=== PATIENT | female | born 1980 | race Caucasian/White ===

== ENCOUNTER 2024-11-10 07:15 | Outpatient (CLI) | payer OTHER, SELFPAY ==
[2024-11-10 07:46] VITALS: PULSE 66; RESP 16; TEMP 36.4
--- NOTE | 2024-11-10 07:55 | PDOC.PAIN ---
Date of service: 11/10/24 Time of Service: 08:32 Pain Managment Procedure Note Procedure Note Procedure Note: Lumbar Transforaminal Epidural Steroid Injection ? Location: RIGHT L3-4 ? Pre-procedure Diagnosis: M54.17-Radiculopathy, lumbosacral region M54.16 Radiculopathy, lumbar region ? Post-procedure Diagnosis:? The same as above ? Sedation:? none ? Estimated blood loss:? less than 2 cc ? Surgeon:? Colin Gilbert MD COMMENT: Patient has some foraminal narrowing on the right at L3?4 with radiation to her right thigh ? Procedure Detail:?? The procedure and potential risks were explained to the patient and informed written consent was obtained. The patient was escorted to the procedure room and placed in the prone position. Pillows were utilized for proper positioning and comfort. Time out was performed in the procedure room with nursing staff confirming the patient's identity, procedure to be performed, allergies, and any blood thinning or anti-platelet medications. The patient's lower back was prepped with ChloraPrep and draped in a sterile fashion. Sterile gloves were used, a face mask was worn, and new single dose vials of all medications were used with the top being swabbed with alcohol and given time to dry prior to withdrawal of medication. A right-sided oblique fluoroscopic view was obtained, with visualization of L3-4. Lidocaine 1% was used to anesthetize the skin. The tip of a 22-gauge, Quincke needle was advanced toward the 6 o'clock position of the superior pedicle at the target level.? It was advanced just under the pedicle to the neural foramen L3-4. Correct needle placement was confirmed through review of the fluoroscopy. Next, following negative aspiration, 1cc's of Omnipaque 240 contrast was injected under live fluoroscopy which showed good flow throughout the epidural space and no evidence of vascular flow or flow into adjacent compartments. Next, following negative aspiration,40mg Depo-Medrol and 0.5ml of 0.5% bupivacaine was injected. The needle was gently removed.? ? The patient tolerated the procedure well.? Permanent images saved and recorded. Plan:? Follow up prn PAIN: PRE PROCEDURE 03/26 POST PROCEDURE 10/27 COMMENT: Can repeat prn. Will schedule cervical FRANCO
[2024-11-10 08:15] VITALS: PULSE 70; O2SAT 98
--- NOTE | 2024-11-10 08:15 | DI.RAD_ITS ---
Exam(s) XR PAIN CLINIC LUMBAR SP 2V EXAM: XR PAIN CLINIC LUMBAR SP 2V CLINICAL HISTORY: Dx: Lumbar Radiculopathy. TECHNIQUE: Fluoroscopy was provided for the referring physician for guidance with performing pain cl inic injection procedure. COMPARISON: No exams were available for comparison FINDINGS: Please see procedure note for details. Fluoro time: 28.6 seconds RADIATION DOSE DELIVERED: Ka,r=6.49 mGy
[2024-11-10 08:16] VITALS: BP 104/73; PULSE 63; O2SAT 99
[2024-11-10 08:20] VITALS: PULSE 62; O2SAT 98
[2024-11-10] MEDS: Nerve Block Tray 1 EACH MC (08:32)
[2024-11-10] MEDS: Bupivacaine 0.5% Pres-Free 10 ML VIAL IJ (08:33)
[2024-11-10] MEDS: methylPREDNISolone ACETATE 40 MG/ML VIAL IJ (08:33)
[2024-11-10] MEDS: Omnipaque 240 MG/ML 50 ML BTL IJ (08:33)
== END 2024-11-10 07:16 | disposition home or self-care (01) ==
LOC: PC 07:16
PROVIDERS: PCP Registered Nurse; Visit Provider Anesthesiology Pain Medicine
DX: M54.17 Radiculopathy, lumbosacral region (principal); M54.16 Radiculopathy, lumbar region
CPT/HCPCS: 00123; 64483; 72100; J0665; J1010; Q9967

== ENCOUNTER 2024-12-08 12:08 | Outpatient (CLI) | payer OTHER, SELFPAY ==
--- NOTE | 2024-12-08 06:00 | DI.RAD_ITS ---
Exam(s) XR PAIN CLINIC CERVICAL SP 2V EXAM: XR PAIN CLINIC CERVICAL SP 2V CLINICAL HISTORY: DX: Cervical Radiculopathy. TECHNIQUE: Fluoroscopy was provided for the referring physician for guidance with performing pain cl inic injection procedure. COMPARISON: No exams were available for comparison FINDINGS: Please see procedure note for details. Fluoro time: 20.4 seconds RADIATION DOSE DELIVERED: Ka,r=2.2 mGy
--- NOTE | 2024-12-08 12:26 | PDOC.PAIN ---
Date of service: 12/08/24 Time of Service: 13:08 Pain Managment Procedure Note Procedure Note Procedure Note: CERVICAL EPIDURAL STEROID INJECTION ? Pre-procedure Diagnosis: M54.12- Radiculopathy, cervical region ? Post-procedure Diagnosis:? The same as above ? Sedation:? ? none ? Medication: Depo-Medrol 80 mg, Omnipaque 1 mL ? Estimated blood loss:? less than 2 cc ? Surgeon:? Colin Gilbert MD Comment: ? Procedure Detail:? The procedure and potential risks were explained to the patient and informed written consent was obtained. The patient was escorted to the procedure room and placed in the prone position. Pillows were utilized for proper positioning and comfort. Time out was performed in the procedure room with nursing staff confirming the patient's identity, procedure to be performed, allergies, and any blood thinning or anti-platelet medications.? The patient's neck and upper back was prepped with ChloraPrep and draped in a sterile fashion. Sterile technique was maintained throughout the procedure.? Sterile gloves were used, a face mask was worn, and new single dose vials of all medications were used with the top being swabbed with alcohol and given time to dry prior to withdrawal of medication. Lidocaine 1% was used to anesthetize the skin. Using a 25-gauge 1.5 inch needle, 1% lidocaine was instilled into the superficial soft tissue overlying the targeted area to provide local anesthesia. With fluoroscopic guidance, a 17 -gauge Tuohy needle was advanced toward the interlaminar space of C7-T1. The needle was then advance through the ligamentum flavum and into the posterior epidural space using the loss of resistance technique. Correct needle placement was confirmed through review of the AP and contralateral oblique fluoroscopic views. A 19-gauge Arrow catheter was threaded cephalad to C5-6 midline Following negative aspiration, one cc of Omnipaque 240 contrast was injected which confirmed good flow throughout the epidural space and no evidence of vascular flow or flow into adjacent compartments. Next, following negative aspiration, 1 cc's of normal saline and 80mg of Depo-Medrol was injected. The needle and catheter were gently removed intact. The patient tolerated the procedure well and was transported to the recovery area for observation and discharge instructions. Permanent images saved and recorded. Plan:? Follow up PRN. PAIN PRE PROCEDURE 04/26 POST PROCEDURE COMMENT: Patient will follow-up in office if still having pain Coding Conscious Sedation used for procedure: No CPT Codes: Inj Spine C/T w/Imaging - 91756 ([id number] ~G) Additional Codes: Date of Service (45734) Date of service: 12/08/24
[2024-12-08 12:35] VITALS: BP 122/77; PULSE 86; RESP 20; TEMP 36.6; O2SAT 100
[2024-12-08] MEDS: Epidural Tray 1 EACH MC (12:56)
[2024-12-08] MEDS: methylPREDNISolone ACETATE 40 MG/ML VIAL IJ (12:56)
[2024-12-08 12:59] VITALS: PULSE 71; O2SAT 98
[2024-12-08 13:00] VITALS: PULSE 71; O2SAT 98
[2024-12-08] MEDS: Omnipaque 240 MG/ML 50 ML BTL IJ (13:12)
== END 2024-12-08 12:09 | disposition home or self-care (01) ==
LOC: PC 12:09
PROVIDERS: PCP Registered Nurse; Visit Provider Anesthesiology Pain Medicine
DX: M54.12 Radiculopathy, cervical region (principal)
CPT/HCPCS: 62321; 72040; J1010; Q9967

== ENCOUNTER 2025-04-07 09:32 | Outpatient (CLI) | payer OTHER, SELFPAY ==
[2025-04-07 10:03] VITALS: BP 125/91; PULSE 82; RESP 18; TEMP 36.2; O2SAT 97
[2025-04-07 10:21] VITALS: PULSE 76; RESP 14; O2SAT 98
[2025-04-07 10:22] VITALS: BP 139/89; PULSE 75; PULSE 79; RESP 15; O2SAT 97
[2025-04-07 10:30] VITALS: BP 134/102; PULSE 79; PULSE 85; RESP 19; O2SAT 99
[2025-04-07 10:31] VITALS: PULSE 101; RESP 17; O2SAT 99
--- NOTE | 2025-04-07 10:34 | PDOC.PAIN_ITS ---
Date of service: 04/07/25 Time of Service: 10:34 Pain Managment Procedure Note Procedure Note Procedure Note: PROCEDURE NOTE RIGHT L3 TRANSFORAMINAL EPIDURAL STEROID INJECTION Chief Complaint: RIGHT leg pain. Date of Service: April 07, 2025 Patient: KAMILA DAWN Provider: Matheus Stroud DO, MPH KAMILA DAWN has been [facility] to the [facility] for a transforaminal epidural steroid injection. Pre-operative diagnosis: Lumbosacral Radiculopathy ICD-10 M54.17 Post-operative diagnosis: Same Pre-Procedure Pain: VAS= 9/10 Comments: I previously evaluated the patient in our clinic and their symptoms remain the same as they were at that time. She had this procedure with Dr. Gilbert on 11/10/24 and had >3 months of >50% pain relief. KAMILA was interviewed and the medical record reviewed. There were no medical, pharmacologic, radiographic or other structural contraindications to attempting a fluoroscopically-guided transforaminal lumbar epidural steroid injection. The risks, benefits, and potential side effects were reviewed with the patient. Risks include, but are not limited to, [id number] headache, infection, bleeding, nerve injury, spinal cord damage, allergic reaction, possible increase in symptoms over the ensuing 24 to 48 hours, paralysis, and . The patient appeared to understand, questions were answered to the patient?s satisfaction and the patient agreed to proceed. Once I obtained informed verbal consent, the printed consent form was signed by the patient and myself. A standard time-out procedure was performed. KAMILA was placed in the prone position on the fluoroscopy table and automated blood pressure cuff, three lead EKG, and pulse oximeter were applied. The skin entry point for entering/approaching the right L3 space for the transforaminal epidural steroid injection was marked. Following thorough chlorhexadine preparation of the skin and draping, 2 ml of 1% lidocaine was infiltrated into the skin over the entry point and subcutaneous tissues. Under fluoroscopic guidance, in ipsilateral oblique view, a co-axial approach using a 3.5 22G spinal needle was advanced to the base of the L3 pedicle. The needle was advanced to the superio-posterior aspect of the neural foramen under lateral view. Oblique and AP views were rechecked. Under AP and lateral views, 1 ml of Omnipaque-240 was injected while visualized with fluoroscopy. There was no evidence of intravascular or intrathecal uptake, the epidural space was delineated. Next 1.5 ml of preservative-free Dexamethasone (10 mg/ml) was injected after negative aspiration. This was followed by 1 ml of preservative- free 1% lidocaine. (49 mls of Omnipaque-240 was wasted) There was no unusual discomfort expressed by KAMILA. The needle was withdrawn without difficulty. KAMILA was observed and was without hemodynamic, neurologic, or allergic reactions.? Fluoroscopic images were digitally archived. KAMILA's vital signs were stable throughout the procedure and were as recorded in the docflowsheet by the nursing staff.? If given, dosages of intravenous drugs for anxiolysis and analgesia were documented in MAR. Follow up plans and appointments were discussed with KAMILA. Post procedure instruction was given as documented in nursing records and having met discharge criteria KAMILA was [facility] from the [facility]. COMMENTS: Post-procedure pain: VAS= 0/10. KAMILA to contact [facility] as needed. If at least 50% improvement in pain and/or function for at least 3 months is achieved, this procedure can be repeated. I personally performed this entire procedure. MATHEUS STROUD DO, MPH [facility] board certification in Pain Medicine [facility] Coding Conscious Sedation used for procedure: No CPT Codes: Transforaminal Lumbar/Sacral (includes fluoro) - 11910 ([id number] ~G) Right Additional Codes: Date of Service (37469) Date of service: 04/07/25 Diagnoses: Lumbosacral radiculopathy
[2025-04-07 10:37] VITALS: BP 144/96; PULSE 78
--- NOTE | 2025-04-07 10:40 | DI.RAD_ITS ---
Exam(s) XR PAIN CLINIC LUMBAR SP 2V EXAM: XR PAIN CLINIC LUMBAR SP 2V CLINICAL HISTORY: Dx: Lumbar Radiculopathy. TECHNIQUE: Fluoroscopy was provided for the referring physician for guidance with performing pain clinic injection procedure. COMPARISON: No exams were available for comparison FINDINGS: Please see procedure note for details. Fluoro time: 31.3 seconds RADIATION DOSE DELIVERED: Ka,r=6.05 mGy
[2025-04-07] MEDS: Nerve Block Tray 1 EACH MC (10:42)
[2025-04-07] MEDS: Omnipaque 240 MG/ML 50 ML BTL IJ (10:42)
[2025-04-07] MEDS: Dexamethasone Sod. Phos./Pres-Free 10 MG/ML VIAL IJ (10:43)
== END 2025-04-07 09:33 | disposition home or self-care (01) ==
LOC: PC 09:32
PROVIDERS: PCP Registered Nurse; Visit Provider Preventive Medicine Occupational Medicine
DX: M54.17 Radiculopathy, lumbosacral region (principal)
CPT/HCPCS: 64483; 72100; J1100; Q9967

== ENCOUNTER 2025-04-22 10:31 | Outpatient (CLI) | payer OTHER, SELFPAY ==
--- NOTE | 2025-04-22 06:00 | DI.RAD_ITS ---
Exam(s) XR PAIN CLINIC CERVICAL SP 2V EXAM: XR PAIN CLINIC CERVICAL SP 2V CLINICAL HISTORY: Dx: Cervical Radiculopathy TECHNIQUE: 2D and realtime digital imaging was performed. CONTRAST MATERIAL: Refer to procedure report. COMPARISON: No exams were available for comparison FINDINGS: Fluoroscopy was provided for Dr. Stroud during the performance of a cervical epidural steroid injection. Please refer to the procedure report for complete details. Ka,r=2.1 mGy IMPRESSION: RADIATION DOSE DELIVERED: 0.0 0.0 0
[2025-04-22 10:39] VITALS: BP 115/76; PULSE 77; RESP 18; TEMP 36.5; O2SAT 100
[2025-04-22 11:07] VITALS: PULSE 74
[2025-04-22 11:10] VITALS: PULSE 76; RESP 13; O2SAT 99
[2025-04-22 11:11] VITALS: BP 117/70; PULSE 75; RESP 14; O2SAT 99
[2025-04-22 11:15] VITALS: BP 116/69; PULSE 75; RESP 13; O2SAT 98
[2025-04-22 11:21] VITALS: PULSE 77; RESP 16; O2SAT 100
--- NOTE | 2025-04-22 11:22 | PDOC.PAIN_ITS ---
Date of service: 04/22/25 Time of Service: 11:22 Pain Managment Procedure Note Procedure Note Procedure Note: Procedure Note Cervical Interlaminar Epidural Steroid Injection Date of Service: April 22, 2025 Patient:? KAMILA DAWN? Provider:? Gracy Stroud DO, MPH KAMILA has been referred to the [facility] for cervical epidural steroid injection.? Pre-operative diagnosis: Cervical Radiculopathy ICD-10 M54.12 Post-operative diagnosis: Same Pre-procedure pain: VAS= 9/10 Comments: Her last cervical MANAS was 12/08/2024 and she had >3 months of >50% pain relief. Most of her neck and arm pain has returned. KAMILA was interviewed and the medical record was reviewed.? There were no medical, pharmacologic, radiographic or other structural contraindications to attempting fluoroscopically guided cervical interlaminar epidural steroid injection.? Risks, potential side effects, indications, and potential benefits of the procedure were reviewed with KAMILA.? Questions and concerns were addressed.? After it was clear that the patient was fully informed about the procedure, the printed consent form was signed by the patient and myself.? KAMILA was placed in the prone position on the fluoroscopy table and automated blood pressure cuff as well as pulse oximeter was applied. A standard time-out procedure was performed. The skin entry point for entering the epidural space by a midline C7-T1 interlaminar approach was identified under fluoroscopy and marked.? The skin entry point was thoroughly cleaned with Chlorhexadine preparation and the skin was draped.? Next a mixture of 2 mls of 1% lidocaine was infiltrated into the area of the planned skin entry point and underlying subcutaneous tissues.? Next an 18 gauge Tuohy needle was placed under fluoroscopic guidance and with loss of resistance technique into the epidural space utilizing multiple AP and 55 degree contralateral fluoroscopic views.? Upon correct needle placement and loss of resistance, there were no paresthesia or return of blood or CSF through the needle. Next 1 mls of preservative-free Omnipaque 240 was injected with clear epidural spread in the A/P and oblique views. Next, a solution of 15 mg of preservative-free Dexamethasone was injected. This was followed with 1ml of preservative-free normal saline. No unus ual discomfort was expressed by KAMILA. The needle was withdrawn without difficulty. (49 mls of Omnipaque and 5 mg of Dexamethasone was wasted) KAMILA was observed and was without hemodynamic, neurologic, or allergic reactions.? Fluoroscopic images were digitally archived. KAMILA's vital signs were stable throughout the procedure and were as recorded in the doc flowsheet by the nursing staff.? If given, dosages of intravenous drugs for anxiolysis and analgesia were documented in MAR. Follow up plans and appointments were discussed with KAMILA.? Post procedure instruction was given as documented in nursing documentation and having met discharge criteria, [facility]A [facility] the [facility]. A retrospective review of interlaminar cervical ESIs found that approximately two-thirds of patients with symptomatic cervical radiculopathy from disc herniation were able to avoid surgery for up to 1 year with treatment. Success rate was improved with earlier injection (< 100 days from diagnosis). Doreen EL, Roxi V, James L, Marah AN, Isaías WATT. Cervical epidural steroid injections for symptomatic disc herniations. J Spinal Disord Tech. 2006 January;19(3):183-6. ? COMMENTS: No apparent complications. Post-procedure pain: VAS= 2/10. KAMILA to contact [facility] as needed. If at least 50% improvement in pain and/or function for at least 3 months is achieved, this procedure can be repeated. I personally completed the entire procedure. GRACY STROUD DO, MPH [facility]-subspecialty board certification in Pain Medicine [facility] Coding Conscious Sedation used for procedure: No CPT Codes: Inj Spine C/T w/Imaging - 97177 ([id number] ~G) Additional Codes: Date of Service (50711) Date of service: 04/22/25 Diagnoses: cervical radiculopathy
[2025-04-22] MEDS: Epidural Tray 1 EACH MC (11:26)
[2025-04-22] MEDS: Dexamethasone Sod. Phos./Pres-Free 10 MG/ML VIAL IJ (11:26)
[2025-04-22] MEDS: Omnipaque 240 MG/ML 50 ML BTL IJ (11:26)
== END 2025-04-22 10:32 | disposition home or self-care (01) ==
LOC: PC 10:32
PROVIDERS: PCP Registered Nurse; Visit Provider Preventive Medicine Occupational Medicine
DX: M54.12 Radiculopathy, cervical region (principal)
CPT/HCPCS: 62321; 72040; J1100; Q9967